=== PATIENT | female | born 1955 | race Caucasian/White ===

== ENCOUNTER 2017-08-04 19:56 | Inpatient (IN) ==
--- NOTE | 2017-08-04 20:47 | Emergency Department Note ---
Disposition Clinical Impression: Diverticulitis Disposition: Admitted As Inpatient Condition: Fair Abdominal Pain HPI - General Chief Complaint: ED Abdominal Pain Stated Complaint: ABDOMINAL PAIN Time Seen by Provider: 08/04/17 20:41 Source: patient, EMS Mode of arrival: EMS Limitations: no limitations Nursing Notes Reviewed: Yes Vital Signs Reviewed: Yes - History of Present Illness HPI Narrative: Patient relates she is been having persistent pain in her lower abdomen since yesterday. This is potentially bad with sitting or with motion such as bending over. She relates its not as bad she is actually up and walking but this evening she could not sit down without severe pain she called the squad to come in for evaluation. She notes it is sore with putting pressure on her lower abdomen. She has pain or trouble like this before. She reports "regular diarrhea" for her without blood or mucus. She has not had any change for urine but states she does have stage III chronic kidney disease. She reports chronic nausea with occasional vomiting after she takes her methotrexate or prednisone for her "autoimmune disease". She denies flank pain, chest pain, shortness of breath or cough. She has weakness or dizziness. Denies history of any prior abdominal surgeries nor history for colitis, diverticulitis or pancreatitis. She denies pain from her low back radiating into her back. Pt Subjective Complaint: abdominal pain Onset (ago): day(s) (1) Consistency: Worsening Location: suprapubic Pain Severity: moderate Pain Scale: 5 Quality: aching, dull Radiation: none Migration to: no migration Improves with: other (Standing) Worsens with: other (Sitting or bending) Associated symptoms: Reports: nausea, vomiting, diarrhea. Denies: fever, chills , constipation, dysuria, hematemesis, hematochezia, melena, hematuria, anorexia , syncope Treatments prior to arrival: none - Related Data Home Medications Medication Instructions Recorded Confirmed Atenolol 100 mg PO BID 08/04/17 08/04/17 Calcium Carbonate [Calcium] 2,400 mg PO DAILY 08/04/17 08/04/17 Methotrexate [Otrexup] 25 mg PO QWEEK 08/04/17 08/04/17 Pravastatin Sodium [Pravachol] 40 mg PO DAILY 08/04/17 08/04/17 Sertraline [Zoloft] 25 mg PO DAILY 08/04/17 08/04/17 Allergies Allergy/AdvReac Type Severity Reaction Status Date / Time Penicillins Allergy Hives Verified 08/04/17 19:57 All systems ED: reviewed and negative except as stated. Abdominal Pain PMH - Past Medical History Medical history: Reports: hyperlipidemia, hypertension, other (Autoimmune disease) Female Surgical History: Reports: orthopedic, other Psychiatric history: Reports: depression - Social History Smoking status: Light tobacco smoker Alcohol use: Reports: occasionally Drug use: Reports: none Physical Exam - General Limitations: no limitations General appearance: alert, in no apparent distress - Head Head exam: atraumatic, normocephalic, normal inspection - Eye Eye exam: Present: normal appearance, PERRL, EOMI. Absent: scleral icterus, conjunctival injection - ENT ENT exam: normal exam, normal oropharynx, mucous membranes moist - Neck Neck exam: Present: normal inspection, full ROM, trachea midline - Chest Chest inspection: Present: normal inspection, symmetric chest wall rise - Respiratory Respiratory exam: Present: normal lung sounds bilaterally. Absent: respiratory distress, wheezes, prolonged expiratory phase - Cardiovascular Cardiovascular exam: Present: regular rate, normal rhythm, normal heart sounds. Absent: tachycardia - Abdominal Exam Abdominal exam: Present: soft, normal bowel sounds. Absent: distention, guarding, rebound, rigidity, psoas sign, obturator sign, Hernández's sign, tenderness at McBurney's Point Abdominal tenderness: Present: suprapubic, moderate - Extremities Exam Extremities exam: Present: normal inspection, full ROM, normal capillary refill. Absent: tenderness, pedal edema - Expanded Lower Extremity Exam Neurovascular/Tendon exam: Present: normal capillary refill. Absent: motor deficit, sensory deficit, tendon deficit Gait: not tested/not observed - Back Exam Back exam: Present: normal inspection, full ROM. Absent: tenderness, CVA tenderness (R), CVA tenderness (L) - Neurological Exam Neurological exam: Present: alert, oriented X3. Absent: motor sensory deficit - Psychiatric Psychiatric exam: Present: normal affect, normal mood. Absent: agitated, anxious - Skin Skin exam: Present: warm, dry, intact, normal color. Absent: diaphoresis, pallor Course Course Narrative: Patient does demonstrate a urine with leukocytosis. She also has an adjacent significant sigmoid diverticulitis. She is started on both Cipro and Flagyl with plan to continue IV fluids and observation in the hospital. A page has been placed to Dr. Christina for this purpose. Vital Signs Temperature 99.6 F 08/04/17 19:59 Pulse Rate 61 08/04/17 19:59 Respiratory Rate 16 08/04/17 19:59 Blood Pressure 112/60 08/04/17 19:59 O2 Sat by Pulse Oximetry 93 08/04/17 19:59 Temperature 99.6 F 08/04/17 19:59 Pulse Rate 67 08/04/17 21:25 Respiratory Rate 16 08/04/17 21:25 Blood Pressure 134/67 08/04/17 21:25 O2 Sat by Pulse Oximetry 98 08/04/17 21:25 Oxygen Delivery Oxygen Delivery Room Air Abdominal Pain - Differential Diagnosis Differential Diagnosis: Likely: abdominal pain non-specific, acute appendicitis , constipation, diverticulitis, pancreatitis - Lab Data Lab results reviewed: Yes I reviewed the patient's lab results. Result diagrams: 08/04/17 20:55 08/04/17 20:55 Lab Results 08/04/17 08/04/17 08/04/17 Range/Units 20:55 20:55 21:11 WBC 14.4 H (4.3-11.1) K/mcL RBC 4.64 (3.82-4.97) M/mcL Hgb 13.0 (11.5-15.4) g/dL Hct 39.4 (35.3-44.9) % MCV 84.9 (83.0-100.0) fL MCH 28.0 (28.0-33.3) pg MCHC 33.0 (31.6-35.5) g/dL RDW 14.1 (11.5-14.5) % Plt Count 90 L (140-400) K/mcL MPV 12.7 H (9.4-12.4) fL Immature Gran % 0.5 (0-4) % Seg Neutrophils % 79.4 % Lymphocytes % 10.7 % Monocytes % 8.8 % Eosinophils % 0.5 % Basophils % 0.1 % Neutrophils # 11.4 H (1.6-8.9) K/mcL Lymphocytes # 1.5 (0.6-4.6) K/mcL Monocytes # 1.3 (0.0-1.3) K/mcL Eosinophils # 0.1 (0.0-0.6) K/mcL Basophils # 0.0 (0.0-0.2) K/mcL Sodium 139 (136-145) mEq/L Potassium 3.4 L (3.5-5.1) mEq/L Chloride 104 (98-107) mEq/L Carbon Dioxide 27 (23-29) mEq/L BUN 15 (8-23) mg/dL Creatinine 1.10 (0.60-1.20) mg/dL Est GFR ( Amer) > 60 (> 60) Est GFR (Non-Af Amer) 50 L (> 60) BUN/Creatinine Ratio 14 (6-26) Glucose 108 H (70-105) mg/dL Calculated Osmolality 289 (280-300) Calcium 9.5 (8.6-10.3) mg/dL Total Bilirubin 1.2 H (0.3-1.0) mg/dL Direct Bilirubin 0.1 (0.0-0.2) mg/dL Indirect Bilirubin 1.1 (0.0-1.2) mg/dL AST 15 (13-39) Units/L ALT 15 (7-52) Units/L Alkaline Phosphatase 61 (34-104) Units/L Serum Total Protein 6.4 (6.4-8.9) g/dL Albumin 4.2 (3.5-5.7) g/dL Globulin 2.2 L (2.4-3.5) g/dL Albumin/Globulin Ratio 1.9 (1.1-2.2) Amylase 20 L (29-103) Units/L Lipase 22 (11-82) Units/L Urine Color Yellow (Yellow) Urine Clarity Clear (Clear) Urine pH 8.5 H (5.0-8.0) pH Units Ur Specific [place] 1.020 (1.010-1.025) Urine Protein 100 H (Neg-Trace) mg/dL Urine Glucose (UA) Normal (Normal) mg/dL Urine Ketones Trace H (Negative) mg/dL Urine Blood Trace-intact H (Negative) Urine Nitrite Positive A (Negative) Urine Bilirubin Small H (Negative) Urine Urobilinogen Normal (Normal) mg/dL Ur Leukocyte Esterase Trace H (Negative) Urine Microscopic WBC 15-30 H (0-3) per hpf Ur Squamous Epith Cells Few (None-Few) per lpf Urine Bacteria Few (None-Few) per hpf Ur Culture Indicated? YES A (NO) - Radiology Data Radiology results reviewed: Yes I reviewed the patient's radiology results. Impressions Abdomen/Pelvis CT 08/04/17 20:50 IMPRESSION: 1. Acute diverticulitis of the sigmoid colon. 2. Bilateral renal cortical exophytic nodules. Recommend renal ultrasound for further assessment. D/ / Iveth Watkins MD / Iveth Watkins MD Interpreting Provider: Iveth Watkins MD
[2017-08-04] MEDS ORDERED: 0.9 % Sodium Chloride 1,000 ML IVC ONE (20:50)
[2017-08-04] MEDS ORDERED: Ondansetron 4 MG/2 ML VIAL IVP ONE (20:50)
[2017-08-04 21:01] LABS: Basophils % 0.1 %; Eosinophils # 0.1 K/mcL (0.0-0.6); Eosinophils % 0.5 %; Hematocrit 39.4 % (35.3-44.9); Immature Granulocytes % 0.5 % (0-4); Lymphocytes # 1.5 K/mcL (0.6-4.6); Lymphocytes % 10.7 %; Mean Corpuscular Volume 84.9 fL (83.0-100.0); Mean Platelet Volume 12.7 fL (9.4-12.4); Monocytes # 1.3 K/mcL (0.0-1.3); Monocytes % 8.8 %; Neutrophils # 11.4 K/mcL (1.6-8.9); Platelet Count 90 K/mcL (140-400); Red Blood Count 4.64 M/mcL (3.82-4.97); Red Cell Distribution Width 14.1 % (11.5-14.5); Segmented Neutrophils % 79.4 %
[2017-08-04 21:17] LABS: Alanine Aminotransferase 15 Units/L (7-52); Albumin 4.2 g/dL (3.5-5.7); Albumin/Globulin Ratio 1.9 (1.1-2.2); Alkaline Phosphatase 61 Units/L (34-104); Amylase 20 Units/L (29-103); Aspartate Amino Transferase 15 Units/L (13-39); BUN/Creatinine Ratio 14 (6-26); Bilirubin,Direct 0.1 mg/dL (0.0-0.2); Bilirubin,Indirect 1.1 mg/dL (0.0-1.2); Bilirubin,Total 1.2 mg/dL (0.3-1.0); Blood Urea Nitrogen 15 mg/dL (8-23); Calcium 9.5 mg/dL (8.6-10.3); Carbon Dioxide 27 mEq/L (23-29); Chloride 104 mEq/L (98-107); Globulin 2.2 g/dL (2.4-3.5); Glucose 108 mg/dL (70-105); Lipase 22 Units/L (11-82); Osmolality,Calculated 289 (280-300); Potassium 3.4 mEq/L (3.5-5.1); Sodium 139 mEq/L (136-145); Total Protein 6.4 g/dL (6.4-8.9); eGFR For African Americans > 60 (> 60); eGFR For Non-African Americans 50 (> 60)
[2017-08-04 21:32] LABS: Bilirubin,Urine Small (Negative); Blood,Urine Trace-intact (Negative); Clarity,Urine Clear (Clear); Color,Urine Yellow (Yellow); Glucose,Urine (UA) Normal (Normal); Ketones,Urine Trace mg/dL (Negative); Leukocyte Esterase,Urine Trace (Negative); Nitrite,Urine Positive (Negative); PH,Urine 8.5 pH Units (5.0-8.0); Protein,Urine 100 mg/dL (Neg-Trace); Urobilinogen,Urine Normal (Normal)
[2017-08-04 21:40] LABS: Bacteria,Urine Few per hpf (None-Few); Squamous Epithelial Cell,Urine Few per lpf (None-Few); WBC,Urine 15-30 per hpf (0-3)
[2017-08-04] MEDS ORDERED: MetroNIDAZOLE 500 MG/100 ML 500 MG/100 ML BAG IVPB ONE (21:50)
[2017-08-04] MEDS ORDERED: Naloxone 0.4 MG/ML INJ IVP PRN (22:17)
[2017-08-04] MEDS: Ondansetron 4 MG/2 ML VIAL IVP PRN (23:28)
[2017-08-04] MEDS: *HR* Nalbuphine 10 MG/ML AMPUL IV PRN (23:28)
[2017-08-05] MEDS: 0.9 % Sodium Chloride 1,000 ML IVC SCH ×2 (02:48→12:53)
[2017-08-05] MEDS ORDERED: MetroNIDAZOLE 500 MG/100 ML 500 MG/100 ML BAG IVPB SCH (06:00)
[2017-08-05] MEDS: *HR* Nalbuphine 10 MG/ML AMPUL IV PRN ×2 (10:12→20:40)
--- NOTE | 2017-08-05 14:49 | Internal Med History&Physical ---
Date of Encounter: 08/05/17 Time of Encounter: 14:15 Assessment and Plan (1) Diverticulitis Current visit: Yes Status: Acute She has been started on IV Flagyl and Cipro. Will continue these and give lactobacillus. Will advance diet as tolerated. Recheck labs in a.m. (2) Hypertension Current visit: Yes Status: Chronic Continue atenolol. Monitor blood pressure. Qualifiers: Hypertension type: essential hypertension Qualified Code(s): I10 - Essential (primary) hypertension (3) CKD (chronic kidney disease) stage 3, GFR 30-59 ml/min Current visit: Yes Status: Chronic Will hold HCTZ and monitor renal indices. (4) UTI (urinary tract infection) Current visit: Yes Status: Acute Continue Cipro and start lactobacillus. Qualifiers: Urinary tract infection type: site unspecified Hematuria presence: without hematuria Qualified Code(s): N39.0 - Urinary tract infection, site not specified (5) Hypokalemia Current visit: Yes Status: Acute Probably due to HCTZ use with vomiting and diarrhea patient reported having the last 24 hours. We will give supplemental potassium, hold HCTZ, and monitor labs. Internal Medicine - H&P: HPI Chief complaint: Abdominal pain Admitted From: Emergency Dept Plans for Post Hospital Care: Home History of present illness: Ms. Kitchen is a 62 year old female who came to emergency room stating she had onset of abdominal pain the evening of August 03. Pain increased the following day and she decided to come to emergency room. She was evaluated and found to have evidence of diverticulitis of sigmoid colon on abdominal/pelvic CT. She was started on antibiotics and admitted to [facility] floor for ongoing care needs. She denies previous diagnoses of diverticulitis. She denies disorders of her liver gallbladder or exocrine pancreas. 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 - Social History Smoking Status: Light tobacco smoker Smokeless Tobacco Status: Yes Alcohol use: occasionally Drug use: none Internal Medicine - H&P: Meds Atenolol 100 mg PO BID 08/04/17 [History] Calcium Carbonate [Calcium] 2,400 mg PO DAILY 08/04/17 [History] Methotrexate [Otrexup] 25 mg PO QWEEK 08/04/17 [History] Pravastatin Sodium [Pravachol] 40 mg PO DAILY 08/04/17 [History] Sertraline [Zoloft] 25 mg PO DAILY 08/04/17 [History] 3 Allergy/AdvReac Type Severity Reaction Status Date / Time Penicillins Allergy Hives Verified 08/04/17 19:57 All Systems PM: A 10-system review of systems was performed and is negative for pertinent findings except as documented above in the HPI. Review of systems: Gen.: She states her weight has been stable overall the past few months Cardiovascular: She has history of hypertension but denies MA heart failure angina DVT or pulmonary embolus. She reports a heart catheter proximately 2006 did not require further intervention. Respiratory: She has smoked since age 22 a total of approximately 25 years up to one pack per day. She has not been diagnosed with COPD and does not use home oxygen. She has not been tested for sleep apnea. GI: As per history of present illness : She has chronic kidney disease stage III and follows with a [place] [facility] checker. She denies other kidney or bladder disorders Neurologic: She denies large distribution strokes or seizures. She has been diagnosed with chronic autoimmune uveitis. Endocrine: She denies diabetes or thyroid disease. She has hyperlipidemia Hematology/oncology: She has chronic thrombocytopenia and follows with a tobacco buyer/oncologist in [place]. She denies known internal malignancies Psychiatric: She has depression but denies anxiety or other mental health issues [place] skeletal: She has DJD but no known gout or other bone joint or muscle disorders. - Constitutional Vitals: Temp Pulse Resp BP Pulse Ox 98.8 F 61 16 107/76 91 08/05/17 04:00 08/05/17 10:50 08/05/17 10:50 08/05/17 10:50 08/05/17 10:50 Exam: Gen.: She is a well-developed well-nourished female lying in bed who appears in no acute distress at present time HEENT: Head is atraumatic and normocephalic. Eyes: EOMI. There is no scleral icterus. Mouth: Mucosa is moist. Neck: Supple and nontender. There is no thyromegaly or adenopathy noted. Heart: Regular without murmurs gallops or ectopics Lungs: No wheezes or crackles are heard. Abdomen: Bowel sounds are present. The abdomen is tender to palpation in the lower abdominal area in the midline and left lower quadrant. Extremities: There is no cyanosis edema or clubbing noted. Dorsalis pedis and posttibial pulses are trace - 1+ palpable bilaterally. Neurologic: Mental status: She is talkative and a good historian. Cranial nerves: Smile is symmetric. Forehead wrinkles bilaterally. Tongue protrudes midline. EOMI. Motor: There is no pronator drift. Cerebellar: Finger to nose is intact bilaterally. Skin: Warm and dry Internal Med - H&P Results - Labs CBC & Chem 7: 08/04/17 20:55 08/04/17 20:55
[2017-08-05] MEDS: MetroNIDAZOLE 500 MG/100 ML 500 MG/100 ML BAG IVPB SCH (15:00)
[2017-08-05] MEDS: 0.45 % Sodium Chloride w/KCl 20 MEQ/1,000 ML MLS IVC SCH (17:47)
[2017-08-05] MEDS: Acetaminophen 325 MG TABLET PO PRN (18:14)
[2017-08-05] MEDS: Ondansetron 4 MG/2 ML VIAL IVP PRN (20:05)
[2017-08-05] MEDS: Lactobacillus 1 EACH CAP.SPRINK PO SCH (20:08)
[2017-08-05] MEDS: PrednisoLONE Acetate 1% Opth 5 ML BOTTLE BOTH EYES SCH (20:08)
[2017-08-05] MEDS: Dorzolamide OPTH 10 ML BOTTLE BOTH EYES SCH (20:09)
[2017-08-05] MEDS ORDERED: PrednisoLONE Acetate 1% Opth 5 ML BOTTLE RIGHT EYE SCH (21:00)
[2017-08-06] MEDS: Ondansetron 4 MG/2 ML VIAL IVP PRN (03:37)
[2017-08-06] MEDS: MetroNIDAZOLE 500 MG/100 ML 500 MG/100 ML BAG IVPB SCH ×3 (03:38→17:24)
[2017-08-06] MEDS: 0.45 % Sodium Chloride w/KCl 20 MEQ/1,000 ML MLS IVC SCH ×2 (03:45→20:21)
[2017-08-06] MEDS: Acetaminophen 325 MG TABLET PO PRN (03:46)
[2017-08-06 06:48] LABS: Basophils % 0.4 %; Eosinophils # 0.1 K/mcL (0.0-0.6); Eosinophils % 1.4 %; Hematocrit 35.2 % (35.3-44.9); Hemoglobin 11.1 g/dL (11.5-15.4); Immature Granulocytes % 0.5 % (0-4); Lymphocytes # 1.3 K/mcL (0.6-4.6); Lymphocytes % 12.6 %; Mean Corpuscular HGB Conc 31.5 g/dL (31.6-35.5); Mean Corpuscular Hemoglobin 27.8 pg (28.0-33.3); Mean Platelet Volume 13.1 fL (9.4-12.4); Monocytes # 0.8 K/mcL (0.0-1.3); Monocytes % 7.5 %; Neutrophils # 7.9 K/mcL (1.6-8.9); Segmented Neutrophils % 77.6 %
[2017-08-06 06:53] LABS: Platelet Count 79 K/mcL (140-400)
[2017-08-06 07:06] LABS: BUN/Creatinine Ratio 9 (6-26); Blood Urea Nitrogen 9 mg/dL (8-23); Calcium 8.9 mg/dL (8.6-10.3); Carbon Dioxide 27 mEq/L (23-29); Chloride 108 mEq/L (98-107); Glucose 102 mg/dL (70-105); Magnesium 1.9 mg/dL (1.6-2.6); Osmolality,Calculated 289 (280-300); Potassium 3.8 mEq/L (3.5-5.1); Sodium 140 mEq/L (136-145); eGFR For African Americans > 60 (> 60); eGFR For Non-African Americans 54 (> 60)
[2017-08-06] MEDS: Lactobacillus 1 EACH CAP.SPRINK PO SCH ×2 (10:24→20:18)
[2017-08-06] MEDS: predniSONE 5 MG TABLET PO SCH (10:24)
[2017-08-06] MEDS: PrednisoLONE Acetate 1% Opth 5 ML BOTTLE BOTH EYES SCH ×2 (10:28→20:19)
[2017-08-06] MEDS: Dorzolamide OPTH 10 ML BOTTLE BOTH EYES SCH ×3 (10:28→20:19)
--- NOTE | 2017-08-06 11:19 | Internal Med Progress Note ---
Date of Encounter: 08/06/17 Time of Encounter: 11:10 - Assessment and plan (1) Diverticulitis Current Visit: Yes Status: Acute Assessment and plan: August 06. Continue IV Flagyl, Cipro, and lactobacillus. Continue clear liquid diet. Recheck labs in a.m. (2) Hypertension Current Visit: Yes Status: Chronic Assessment and plan: August 06. Continue atenolol. Qualifiers: Hypertension type: essential hypertension Qualified Code(s): I10 - Essential (primary) hypertension (3) CKD (chronic kidney disease) stage 3, GFR 30-59 ml/min Current Visit: Yes Status: Chronic Assessment and plan: August 06. Creatinine slightly improved to 1.03. Continue present regimen. (4) UTI (urinary tract infection) Current Visit: Yes Status: Acute Assessment and plan: August 06. Continue Cipro and lactobacillus. Qualifiers: Urinary tract infection type: site unspecified Hematuria presence: without hematuria Qualified Code(s): N39.0 - Urinary tract infection, site not specified (5) Hypokalemia Current Visit: Yes Status: Acute Assessment and plan: August 06. Resolved. Continue present regimen. (6) Anemia Current Visit: Yes Status: Acute Assessment and plan: August 06. Hemoglobin has decreased to 11.1. Will check anemia testing in a.m. Qualifiers: Anemia type: unspecified type Qualified Code(s): D64.9 - Anemia, unspecified - Subjective Interval history: August 06. She has no new complaints. She still has some abdominal pain and poor appetite. - Constitutional Vitals: Temp Pulse Resp BP Pulse Ox 99.4 F 53 16 131/64 94 08/06/17 08:02 08/06/17 08:02 08/06/17 08:02 08/06/17 08:02 08/06/17 08:02 Exam: She is resting comfortably in bed and appears in no acute distress. Her affect is bright and cheerful. I reviewed her medications and lab results. I discussed pertinent lab findings with her. Internal Medicine: Result - Labs CBC & Chem 7: 08/06/17 06:14 08/06/17 06:14 Labs: Short CBC 08/06/17 Range/Units 06:14 WBC 10.2 (4.3-11.1) K/mcL Hgb 11.1 L D (11.5-15.4) g/dL Hct 35.2 L (35.3-44.9) % Plt Count 79 L (140-400) K/mcL Neutrophils # 7.9 (1.6-8.9) K/mcL [facility] 08/06/17 06:14 Sodium 140 Potassium 3.8 Chloride 108 H Carbon Dioxide 27 BUN 9 Creatinine 1.03 Glucose 102 Calcium 8.9 Consult Discharge Plan - Plan
[2017-08-06] MEDS: *HR* HYDROcodone/Acet 5/325 mg TABLET PO PRN (21:03)
[2017-08-07] MEDS: MetroNIDAZOLE 500 MG/100 ML 500 MG/100 ML BAG IVPB SCH (01:28)
[2017-08-07] MEDS: *HR* HYDROcodone/Acet 5/325 mg TABLET PO PRN ×2 (01:34→08:13)
[2017-08-07 05:48] LABS: Basophils % 0.4 %; Eosinophils # 0.1 K/mcL (0.0-0.6); Eosinophils % 1.8 %; Hematocrit 34.9 % (35.3-44.9); Immature Granulocytes % 0.4 % (0-4); Lymphocytes # 1.1 K/mcL (0.6-4.6); Lymphocytes % 16.7 %; Mean Corpuscular HGB Conc 31.5 g/dL (31.6-35.5); Mean Corpuscular Hemoglobin 27.6 pg (28.0-33.3); Mean Corpuscular Volume 87.7 fL (83.0-100.0); Mean Platelet Volume 12.2 fL (9.4-12.4); Monocytes # 0.5 K/mcL (0.0-1.3); Neutrophils # 4.9 K/mcL (1.6-8.9); Red Blood Count 3.98 M/mcL (3.82-4.97); Red Cell Distribution Width 13.7 % (11.5-14.5); Segmented Neutrophils % 72.7 %
[2017-08-07 05:55] LABS: Platelet Count 77 K/mcL (140-400)
[2017-08-07 06:06] LABS: BUN/Creatinine Ratio 7 (6-26); Blood Urea Nitrogen 7 mg/dL (8-23); Carbon Dioxide 28 mEq/L (23-29); Chloride 111 mEq/L (98-107); Glucose 97 mg/dL (70-105); Osmolality,Calculated 290 (280-300); Sodium 141 mEq/L (136-145); eGFR For African Americans > 60 (> 60); eGFR For Non-African Americans 56 (> 60)
[2017-08-07] MEDS: 0.45 % Sodium Chloride w/KCl 20 MEQ/1,000 ML MLS IVC SCH (06:10)
[2017-08-07] MEDS ORDERED: predniSONE 20 MG TABLET PO STA (07:04)
[2017-08-07 07:41] VITALS: BP 124/57
[2017-08-07] MEDS: predniSONE 5 MG TABLET PO SCH (08:13)
[2017-08-07] MEDS: Lactobacillus 1 EACH CAP.SPRINK PO SCH (08:13)
[2017-08-07] MEDS: Dorzolamide OPTH 10 ML BOTTLE BOTH EYES SCH (08:19)
[2017-08-07] MEDS: PrednisoLONE Acetate 1% Opth 5 ML BOTTLE BOTH EYES SCH (08:20)
[2017-08-07] MEDS ORDERED: MetroNIDAZOLE 500 MG/100 ML 500 MG/100 ML BAG IVPB SCH (09:00)
[2017-08-07 09:14] LABS: % Iron Saturation 25 % (15-50); Ferritin 260 ng/ml (10-120); Iron 60 mcg/dL (50-170); Transferrin 173 mg/dL (203-362)
[2017-08-07 09:40] LABS: Vitamin B12 888 pg/mL (250-1100)
[2017-08-07 09:57] LABS: Folate > 22.3 ng/mL (3.0-16.0)
--- NOTE | 2017-08-07 09:59 | Discharge Summary ---
Orders not resulted at time of discharge: Pending orders 08/07/17 05:34 Folate AM 0400 Vitamin B12 AM 0400 Date of Encounter: 08/07/17 Time of Encounter: 09:49 - Discharge Diagnosis (1) Diverticulitis Priority: Primary Status: Acute (2) Hypertension Priority: Secondary Status: Chronic Qualifiers: Hypertension type: essential hypertension Qualified Code(s): I10 - Essential (primary) hypertension (3) CKD (chronic kidney disease) stage 3, GFR 30-59 ml/min Priority: Secondary Status: Chronic (4) UTI (urinary tract infection) Priority: Secondary Status: Acute Qualifiers: Urinary tract infection type: site unspecified Hematuria presence: without hematuria Qualified Code(s): N39.0 - Urinary tract infection, site not specified (5) Hypokalemia Priority: Secondary Status: Resolved (6) Anemia Priority: Secondary Status: Acute Qualifiers: Anemia type: unspecified type Qualified Code(s): D64.9 - Anemia, unspecified Hospital course: Ms. Kitchen is a 62 year old female who came to emergency room stating she had onset of abdominal pain the evening of August 03. Pain increased the following day and she decided to come to emergency room. She was evaluated and found to have evidence of diverticulitis of sigmoid colon on abdominal/pelvic CT. She was started on antibiotics and admitted to [facility] floor for ongoing care needs. Initial orders were written by the emergency room physician. I saw her on August 05 and performed a history and physical. She was started on IV Flagyl and Cipro. I added lactobacillus. She had clinical improvement with WBC normalizing to 6.8 and resolution of left shift by day of discharge. Her abdominal pain had lessened and she was tolerating adequate amounts of oral intake by day of discharge. She will continue with antibiotic and probiotic for 2 additional days at discharge. Hemoglobin decreased to 11.1 on August 06. Anemia testing showed iron 60, transferrin saturation 25%, transferrin 173, ferritin 260, and B12 888. Her PCP can monitor this. On August 07 she was medically stable for discharge home. She will follow with her PCP within 1 week. - Time Spent with Patient Total time spent providing and/or coordinating discharge services: - Discharge Medications Prescriptions: Ciprofloxacin [Cipro] 500 mg PO BID #4 tablet Lactobacillus [Culturelle] 1 each PO BID #4 cap.sprink metroNIDAZOLE [Flagyl] 500 mg PO TID #6 tablet Potassium Chloride 10 meq PO DAILY #30 tab.er.prt Home Medications: Atenolol 100 mg PO BID 08/04/17 [History] Calcium Carbonate [Calcium] 2,400 mg PO DAILY 08/04/17 [History] Methotrexate [Otrexup] 25 mg PO QWEEK 08/04/17 [History] Pravastatin Sodium [Pravachol] 40 mg PO DAILY 08/04/17 [History] Sertraline [Zoloft] 25 mg PO DAILY 08/04/17 [History] Ciprofloxacin [Cipro] 500 mg PO BID #4 tablet 08/07/17 [Rx] Lactobacillus [Culturelle] 1 each PO BID #4 cap.sprink 08/07/17 [Rx] Potassium Chloride 10 meq PO DAILY #30 tab.er.prt 08/07/17 [Rx] metroNIDAZOLE [Flagyl] 500 mg PO TID #6 tablet 08/07/17 [Rx] Allergies/Adverse Reactions: 3 Allergy/AdvReac Type Severity Reaction Status Date / Time Penicillins Allergy Hives Verified 08/04/17 19:57 Date of admission: 08/04/17 22:35 Primary care physician: Lyndsey Keyes DO - Constitutional Vitals: Temp Pulse Resp BP Pulse Ox 97.8 F 51 16 124/57 95 08/07/17 07:39 08/07/17 07:39 08/07/17 07:39 08/07/17 07:39 08/07/17 07:39 - Patient Status Disposition: Home, Self-Care Condition: Fair Functional capacity at discharge: independent ambulation Overall status at discharge: patient is progressing back to baseline - Discharge Instructions Follow Up With: Lyndsey Keyes DO [Primary Care Provider] - 1 week Forms: ED Satisfaction Letter, Work/School Release - Diet and Activity Activity: resume usual activities as tolerated Diet: advance to your usual diet
== END 2017-08-07 11:32 | disposition home or self-care (01) | DRG 392 ==
LOC: INPPIK 19:56 → EMEROOPIK 19:56 → INPPIK 22:53
PROVIDERS: ADMIT Internal Medicine; ATTEND Internal Medicine